=== PATIENT | male | born 1975 | race Caucasian/White ===

== ENCOUNTER 2024-06-26 08:01 | Outpatient (REF) | payer SELFPAY ==
[2024-06-26 08:02] VITALS: BP 134/73; PULSE 118; RESP 20; TEMP 36.3; O2SAT 100
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
[2024-06-26 08:30] VITALS: BMI 25.5
[2024-06-26] MEDS: Lidocaine 1% (20 ml mdv) 20 ML Vial INFILT (08:34)
== END 2024-06-26 08:41 ==
LOC: ED 08:01
PROVIDERS: Visit Provider Emergency Medicine
DX: S01.01XA Laceration without foreign body of scalp, initial encounter (principal); R00.0 Tachycardia, unspecified; R03.0 Elevated blood-pressure reading, without diagnosis of hypertension; Y00.XXXA Assault by blunt object, initial encounter